=== PATIENT | female | born 2000 | race Caucasian/White ===

== ENCOUNTER 2020-01-29 14:06 | Emergency (ER) | payer MEDICAID ==
[~2020-01-29] VITALS: Ht 160 cm; Wt 53.5 kg
[~2020-01-29 14:06] MED LIST: ACYC-43 PO; PROMETHAZINE-DM PO
[2020-01-29 16:59] LABS: Urine Bacteria FEW /hpf (None Seen); Urine Blood Negative /uL (Negative); Urine Specific Gravity 1.013 (1.001-1.035); Urine WBC 30 /hpf (0 - 5)
[2020-01-29 17:35] VITALS: BP 111/58
== END 2020-01-29 17:17 | disposition home or self-care (01) ==
LOC: ER 14:06
DX: O20.0 Threatened abortion (principal); O23.42 Unspecified infection of urinary tract in pregnancy, second trimester; Z3A.17 17 weeks gestation of pregnancy
CPT/HCPCS: 36415; 76805; 81001; 84702